=== PATIENT | male | born 1945 | race American Indian/Alaskan Native ===

== ENCOUNTER 2018-12-27 08:30 | Day surgery (SDC) | payer MEDICARE ==
[2018-12-27 09:15] LABS: Basophils # (Auto) 0.1 K/mm3 (0.0-0.1); Basophils % (Auto) 1.1 % (0.0-1.8); Eosinophils # (Auto) 0.2 K/mm3 (0.0-0.4); Eosinophils % (Auto) 2.9 % (0.0-4.3); Hematocrit 38.3 % (35.5-45.6); Lymphocytes # (Auto) 1.7 K/mm3 (1.2-5.4); Lymphocytes % (Auto) 31.8 % (13.4-35.0); Mean Corpuscular HGB Conc 34 % (32-34); Mean Corpuscular Volume 90 fl (84-94); Monocytes # (Auto) 0.6 K/mm3 (0.0-0.8); Monocytes % (Auto) 11.6 % (0.0-7.3); Platelet Count 224 K/mm3 (140-440); Red Blood Count 4.26 M/mm3 (3.65-5.03); Red Cell Distribution Width 16.1 % (13.2-15.2)
[2018-12-27 09:25] LABS: INR 1.05 (0.87-1.13)
[2018-12-27 09:26] LABS: Partial Thromboplastin Time 29.4 Sec. (24.2-36.6)
[2018-12-27] MEDS ORDERED: VERSED IV ONE (10:00)
[2018-12-27] MEDS ORDERED: SUBLIMAZE IV ONE (10:00)
[2018-12-27 12:08] VITALS: BP 136/83
--- NOTE | 2018-12-29 13:11 | Cat Scan Report ---
CT-guided drainage of fluid collection in the right medial gluteal region. Clinical history: Patient has had an outside CT. In that sudy, a 12 cm diameter fluid collection was seen within the posterior aspect of the subcutaneous space of the right gluteal region. Technique: An informed consent was obtained. The patient was placed in prone position. About 0.5 mg of intravenous Versed and 100 mcg of fentanyl was adminstered under my supervision. Radiology nurse was monitoring the vital signs of the patient during the procedure. Procedure: Using local anesthesia(20 mL of lidocaine 1%) and aseptic precautions, a 5 [place] DecaWaveeh catheter was introduced into the collection along the postero-medial wall of the collection. After confirming the position of the catheter, I was able to aspirate yellow colored and serous appearing fluid. The first 10 mL of the fluid was sent to the lab for surgical culture. The patient tolerated the procedure satisfactorily. The postprocedure CT study revealed normal appearance of the subcutaneous soft tissues with almost complete emptying of the fluid collection. Impression: Successful CT-guided drainage of large subcutaneous fluid collection containing a well-defined and millimeter of serous/yellow colored fluid collection. No pleural material are solid material was aspirated. Disposal: The patient was able to the floor completely. The patient was discharged for the procedure 2 hours after postprocedure monitoring. The liver is 90 and on noted in the ZZ and is in the ED but it is benign gadolinium was in the lobe of the baby is in the right abdominal discopathy no use of significantly
== END 2018-12-27 12:00 | disposition home or self-care (01) ==
LOC: EDSTATUS 08:30 → CATHLABREC 08:30
PROVIDERS: ATTEND Family Medicine
DX: R22.2 Localized swelling, mass and lump, trunk (principal); M19.90 Unspecified osteoarthritis, unspecified site; F32.9 Major depressive disorder, single episode, unspecified; E06.9 Thyroiditis, unspecified; G62.9 Polyneuropathy, unspecified; Z79.899 Other long term (current) drug therapy; Z98.890 Other specified postprocedural states; Z79.01 Long term (current) use of anticoagulants
CPT/HCPCS: 10160; 36415; 77012; 85025; 85610; 85730; 87116; J2250; J3010